=== PATIENT | male | born 1955 | race Caucasian/White ===

== ENCOUNTER 2021-10-08 08:00 | Outpatient (RCR) | payer MEDICARE, OTHER, SELFPAY ==
--- NOTE | 2021-09-17 11:56 | PT.OPEX ---
PT [place] Outpatient Eval PT [facility] Outpatient Eval Start: 09/16/21 13:37 Freq: Status: Active Protocol: Document 09/16/21 13:37 CLKali (Rec: 09/16/21 13:41 CLK [id number]) E-Signed By Flor Short PT Physical Therapy Outpatient Evaluation Insurance Information Recert Due Date 12/09/21 Insurance Name Medicare B Medical Diagnosis Urinary Frequency Treating Diagnosis Urinary Frequency Referring MD Dr Mahesh Proctor Subjective Subjective Brian reports having more frequent urination and occasional leakage. I have increasing urge to urinate. It may be just normal for my age , but I wanted to deal with it more naturally vs with medication. I get up at night about 2X/night and maybe void 8X/day. I have 2-3 cups of coffee in the morning and have just recently started trying to drink more water - up to 8 cups per day. Eat very healthy , try to avoid additives and use fresh delivery and co-op. I bike regularly, up to 50 miles per day. I also do yoga. Overall, I ex about an hour a day easily. I only drink maybe 2 beers a month. I do not smoke. I am diabetic. 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 Denies direct trauma to area. 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 Knee hanging at 70 deg (goal of 90 deg) Strength Weakness of glut max in prone with hamstring on slack/jayesh flexed - grade 4/5 blayne. Rt was a bit stronger Palpation Reduced isolation and activation of PFM (palpated externally) Slight Rt ant ilial rotation Balance & Gait Minimal increase in hip ER/toe out Other/Pertinent Objective Client tends to hold breath and activate core mm to try to contract pelvic floor Assessment Assessment/Impression 66 yo with DX of Urinary Frequency and Urge Urination. He presents with fairly normal gait and posture. Minimal impairment in flexibility of blayne hip IR, hamstrings, rectus femoris and lacks strength in glut max. Slight Rt ant ilial rotation. He holds his breath with exertion and has a very difficult time isolating and activating his PFM. He does not drink enough water - 2-3 cups of coffee in morning and 6-8 glasses of water per day. He urinates 2X/night and 6-8X/ day. Report of increased Urge voiding (when I think about going to the bathroom, often times I need to). He has a good diet and exercises regularly. He does not smoke or drink (2 alcoholic beverages per month at most). He does not wear undergarment liners, only occasionally leaks a small amount. He will benefit from continued skilled physical therapy to provide education in proper stretch/strength and PFM endurance training as well as Bladder Health/Norms information and Diet Irritants . Thank you for this referral. Primary Functional Limitations PFM weakness Plan of Care Rehabilitation Potential Good Physical Therapy Goals In 4-6 visits, Brian will be able to report: 1. Reduced urge urination by at least 30% 2. Average time between voiding an average of 3 hours In 8-10 visits, Brian will be able to report: 1. Increased total water intake to at least 68 oz ( negate coffee) 2. IND in entire HEP with emphasis on alignment and pace /reps/HOLD 3. Reduced urine leakage by at least 50% Coordination/Communication With Referral Source Treatment Plan/Direct Interventions Joint Mobilization,Manual Therapy,Neuromuscular Re-ed, Self-Care/Home Management, Therapeutic Exercises Frequency/Duration 1X/Wk for 10 visits Patient Will Be Discharged From Therapy Completion of LTG(s),Skills Plateau,Independent w/HEP, Independently Progressing Evaluation Billing Untimed Code Treatment Minutes 45 Complexity Moderate Certification Information Initial Certification Date 09/16/21 Ending Certification Date 12/09/21
== END 2021-12-16 12:45 | disposition home or self-care (01) ==
PROVIDERS: PCP Internal Medicine; Visit Provider Urology
DX: R35.0 Frequency of micturition (principal); Z51.89 Encounter for other specified aftercare
CPT/HCPCS: 97110; 97140; 97162; 97535

== ENCOUNTER 2024-07-13 07:34 | Outpatient (CLI) | payer MEDICARE, OTHER, SELFPAY ==
--- NOTE | 2024-07-13 09:17 | P.ANES_ITS ---
Anesthesia Charges Start Date/Time Anesthesia Start Date: 07/13/24 Anesthesia Start Time: 08:43 Stop Date/Time Anesthesia Stop Date: 07/13/24 Anesthesia Stop Time: 09:13 Coding CPT Codes CPT Codes: ANES LWR INTST NDSC NOS - 00706 ([id number]) P3 - PATIENT W/SEVERE SYS DISEASE, QX - SUPERVISOR CLEANING AND ANNEALING SVC W/ MD MED DIRECTION, QK - RISK ASSESSMENT ANALYST 2-4 CNCRNT ANES PROC
--- NOTE | 2024-07-13 09:17 | W.ANESCHARGE ---
Anesthesia Charges Start Date/Time Anesthesia Start Date: 07/13/24 Anesthesia Start Time: 08:43 Stop Date/Time Anesthesia Stop Date: 07/13/24 Anesthesia Stop Time: 09:13 Coding CPT Codes CPT Codes: ANES LWR INTST NDSC NOS - [id number] ([id number]) P3 - PATIENT W/SEVERE SYS DISEASE, QX - REMELT PAN TANK OPERATOR SVC W/ MD MED DIRECTION, QK - PACKAGING DESIGN ENGINEER 2-4 CNCRNT ANES PROC
--- NOTE | 2024-07-13 09:34 | P.ANES_ITS ---
Anesthesia Charges Start Date/Time Anesthesia Start Date: 07/13/24 Anesthesia Start Time: 08:43 Stop Date/Time Anesthesia Stop Date: 07/13/24 Anesthesia Stop Time: 09:13 Coding CPT Codes CPT Codes: ANES LWR INTST NDSC NOS - [id number] ([id number]) QK - IMPORT EXPORT CLERK 2-4 CNCRNT ANES PROC, QX - SHUT OFF WORKER SVC W/ MED DIRECTION, P3 - PATIENT W/SEVERE SYS DISEASE
--- NOTE | 2024-07-13 09:34 | W.ANESCHARGE ---
Anesthesia Charges Start Date/Time Anesthesia Start Date: 07/13/24 Anesthesia Start Time: 08:43 Stop Date/Time Anesthesia Stop Date: 07/13/24 Anesthesia Stop Time: 09:13 Coding CPT Codes CPT Codes: ANES LWR INTST NDSC NOS - [id number] ([id number]) QK - DIESEL ENGINE MECHANIC 2-4 CNCRNT ANES PROC, QX - FUNCTIONAL MANAGER SVC W/ MED DIRECTION, P3 - PATIENT W/SEVERE SYS DISEASE
== END 2024-07-13 07:35 | disposition home or self-care (01) ==
LOC: OP CLINIC 07:38
PROVIDERS: PCP Student in an Organized Health Care Education/Training Program; Visit Provider Internal Medicine Gastroenterology
DX: Z12.11 Encounter for screening for malignant neoplasm of colon (principal); Z86.0101 Personal history of adenomatous and serrated colon polyps; D12.3 Benign neoplasm of transverse colon
CPT/HCPCS: 00811; 45380; 88305; J2704

== ENCOUNTER 2024-11-12 10:30 | Outpatient (CLI) | payer MEDICARE, OTHER, SELFPAY | END 2024-11-12 10:31 | disposition home or self-care (01) | LOC: NFLDREF 11-14 14:27 | PROVIDERS: PCP Student in an Organized Health Care Education/Training Program; Referring Provider Student in an Organized Health Care Education/Training Program; Visit Provider Physician Assistant | DX: R30.0 Dysuria (principal) | CPT/HCPCS: 87086 ==